=== PATIENT | female | born 1995 | race Caucasian/White ===

== ENCOUNTER 2018-06-14 06:08 | Inpatient (IN) | payer OTHER ==
[~2018-06-14] VITALS: Ht 149.9 cm; Wt 88.5 kg
[2018-06-14] MEDS ORDERED: PRENATAL TABLE1 EAC1 PO (06:43)
== END 2018-06-16 13:50 | DRG 807 ==
LOC: OB/GYN 06:08 → LDR 06:08 → OB/GYN 18:26
PROVIDERS: ADMIT Obstetrics & Gynecology
PROC: 10E0XZZ Delivery of Products of Conception, External Approach (ICD-10-PCS; principal; 2018-06-14)
PROC: 0W8NXZZ Division of Female Perineum, External Approach (ICD-10-PCS; 2018-06-14)
PROC: 4A1HXCZ Monitoring of Products of Conception, Cardiac Rate, External Approach (ICD-10-PCS; 2018-06-14)
DX: O80 Encounter for full-term uncomplicated delivery (principal); Z37.0 Single live birth; Z3A.39 39 weeks gestation of pregnancy

== ENCOUNTER 2021-09-30 11:02 | Outpatient (CLI) | payer OTHER ==
[~2021-09-30 11:02] MED LIST: PRENATAL TABLE1 EAC1 PO
== END 2021-09-30 12:07 | disposition home or self-care (01) ==
LOC: PRENATAL 11:02
PROVIDERS: ATTEND Obstetrics & Gynecology Maternal & Fetal Medicine
DX: O35.0XX0 Maternal care for (suspected) central nervous system malformation in fetus, not applicable or unspecified (principal); O35.3XX0 Maternal care for (suspected) damage to fetus from viral disease in mother, not applicable or unspecified; O99.280 Endocrine, nutritional and metabolic diseases complicating pregnancy, unspecified trimester; Z3A.20 20 weeks gestation of pregnancy

== ENCOUNTER 2021-12-28 13:51 | Outpatient (CLI) | payer OTHER | END 2021-12-28 16:25 | disposition home or self-care (01) | LOC: PRENATAL 13:51 | PROVIDERS: ATTEND Obstetrics & Gynecology Maternal & Fetal Medicine | DX: O26.849 Uterine size-date discrepancy, unspecified trimester (principal); O36.8199 Decreased fetal movements, unspecified trimester, other fetus; O35.0XX0 Maternal care for (suspected) central nervous system malformation in fetus, not applicable or unspecified; Z3A.34 34 weeks gestation of pregnancy ==

== ENCOUNTER 2022-02-03 07:13 | Inpatient (IN) | payer OTHER ==
[~2022-02-03] VITALS: Ht 152.4 cm; Wt 84.8 kg
[2022-02-03] MEDS ORDERED: TUMS X-STR300 MG PO (07:49)
== END 2022-02-05 13:30 | disposition home or self-care (01) | DRG 807 ==
LOC: LDR 07:13 → OB/GYN 07:13 → LDR 09:59 → OB/GYN 16:42
PROVIDERS: ADMIT Obstetrics & Gynecology; ATTEND Obstetrics & Gynecology
PROC: 10E0XZZ Delivery of Products of Conception, External Approach (ICD-10-PCS; principal; 2022-02-03)
PROC: 4A1HXCZ Monitoring of Products of Conception, Cardiac Rate, External Approach (ICD-10-PCS; 2022-02-03)
DX: O80 Encounter for full-term uncomplicated delivery (principal); Z37.0 Single live birth; Z3A.39 39 weeks gestation of pregnancy; Z20.822 Contact with and (suspected) exposure to COVID-19